=== PATIENT | female | born 1950 | race American Indian/Alaskan Native ===

== ENCOUNTER 2017-10-28 06:20 | Day surgery (SDC) | payer OTHER ==
[2017-10-28] MEDS ORDERED: NACL BACTERIOSTATIC INFILTRATI ONE (06:51)
[2017-10-28] MEDS ORDERED: ANCEF/STERILE WATER 2 GM/20 ML IV NR (07:00)
[2017-10-28] MEDS ORDERED: LACTATED RINGERS 1,000 ML IV SCH (07:00)
[2017-10-28] MEDS ORDERED: XYLOCAINE 1% 20 mL ONE (07:37)
[2017-10-28] MEDS ORDERED: MARCAINE 0.25% INFILTRATI ONE ×2 (07:37→09:00)
[2017-10-28] MEDS ORDERED: VERSED ONE (07:42)
--- NOTE | 2017-10-28 08:07 | Operative Report ---
Operative Report Operative Report: Date of Service: October 28, 2017 Preoperative diagnosis: Right breast mass/mucocele of the upper outer quadrant Postoperative diagnosis: Same Procedure: Right breast mass/mucocele excisional biopsy Surgeon: Halle Sanches M.D. Findings: Known right breast mass/mucocele at the 9 o'clock position 12 cm from the nipple with excision performed Complications: None Drains: None Estimated blood loss: Minimal Disposition: PACU in good condition Indication for operative procedure: This is a 67-year-old lady with abnormal right breast utlrasound. Recent right breast ultrasound guided needle core biopsy of mass at the 9:00 position 12 cm from the nipple with pathology findings of a mucocele and recommendations for excisional biopsy to rule out malignancy. RPatient wished to proceed with the above procedure. The patient was procedure in detail: The patient was taken to the operating room and was laid supine. General anesthesia was administered. The right breast was marked for area of incision using ultrasound to identify lesion at the 9:00 position 12 cm from the nipple. Timeout was performed. A right lateral breast incision was made with a 15 blade knife with dissection taken down to the subcutaneous tissues. Ultrasound was used to identify the area of concern. The mass was encountered and was dissected free with the aid of the Bovie cautery, clip was noted. The specimen was sent to pathology and radiology. Hemostasis was then obtained using the Bovie cautery. The breast cavity was irrigated and suctioned. Kenalog was injected in the skin given history of keloid formation. The deep breast tissues were approximated and closed using interrupted 3-0 Vicryl and skin brought together and closed using a running 4-0 Monocryl followed by skin affix.
[2017-10-28] MEDS ORDERED: DIPRIVAN 10 MG/ML IV ONE (08:10)
[2017-10-28] MEDS ORDERED: SUBLIMAZE ONE (08:10)
--- NOTE | 2017-10-28 08:11 | Short Stay Summary ---
Short Stay Documentation Date of service: 10/28/17 - History H&P: obtained from office - Allergies and Medications Current Medications: Allergies Sulfa (Sulfonamide Antibiotics) Allergy (Verified 10/25/17 10:57) Rash Home Medications Medication Instructions Recorded Confirmed Last Taken Type Ibuprofen 800 mg PO DAILY 10/25/17 10/25/17 Unknown History Telmisartan 80 mg PO DAILY 10/25/17 10/25/17 Unknown History Triamterene/Hydrochlorothiazid 1 tab PO DAILY 10/25/17 10/25/17 Unknown History [Triamterene-Hctz 37.5-25 mg Tb] Active Medications Cefazolin Sodium (Ancef/Sterile Water 2 Gm/20 Ml) 2 gm IV PREOP NR Stop: 10/28/17 23:59 Lactated Ringer's (Lactated Ringers) 1,000 mls @ 75 mls/hr IV DIRECT GROVER - Brief post op/procedure progress note Date of procedure: 10/28/17 Pre-op diagnosis: Right breast mass of upper outer quadrant Post-op diagnosis: same Procedure: Right breast excisional biopsy Anesthesia: GETA Findings: Ultrasound guidance excision of mass at the 9:00 position 12 cm from the nipple , clip present Surgeon: JORDANA PERSON Estimated blood loss: minimal Pathology: list (right breast mass) Specimen disposition: to lab Condition: stable - Disposition Condition at discharge: Good Disposition: DC-01 TO HOME OR SELFCARE Short Stay Discharge Plan Activity: other (no heavy lifting) Diet: regular Wound: other (keep incision clean and dry and may shower in 24 hours; no baths, pools or lakes; do not rub or scrub incision; wear breast binder) Follow up with: YASSINE ROBIN MD [Primary Care Provider] - 7 Days JORDANA PERSON MD [Staff Physician] - 7 Days Prescriptions: HYDROcodone/APAP 5-325 [[place] 5/325] 1 each PO Q6HR PRN #30 tablet PRN Reason: Pain
[2017-10-28] MEDS ORDERED: DILAUDID IV PRN (08:21)
[2017-10-28] MEDS ORDERED: ZOFRAN IV PRN (08:21)
--- NOTE | 2017-10-28 08:22 | Anesthesia Day of Surgery ---
Anesthesia Day of Surgery - Day of Surgery Patient Examined: Yes Patient H&P Reviewed: Yes Patient is NPO: Yes
--- NOTE | 2017-10-28 08:23 | Anesthesia Consultation ---
Anesthesia Consult and Med Hx Date of service: 10/28/17 - Airway Anesthetic Teeth Evaluation: Good ROM Head & Neck: Adequate Mental/Hyoid Distance: Adequate Mallampati Class: Class I Intubation Access Assessment: Good - Pulmonary Exam CTA: Yes - Cardiac Exam Cardiac Exam: RRR - Pre-Operative Health Status ASA Pre-Surgery Classification: ASA2 Proposed Anesthetic Plan: General - Cardiovascular System Hx Hypertension: Yes (20 YEARS)
[2017-10-28] MEDS ORDERED: ZOFRAN ONE (08:24)
[2017-10-28] MEDS ORDERED: REGLAN ONE (08:24)
[2017-10-28] MEDS ORDERED: XYLOCAINE MPF 2% ONE (08:24)
[2017-10-28] MEDS ORDERED: KENALOG-40 ONE (08:38)
[2017-10-28] MEDS ORDERED: XYLOCAINE 1% 20 mL INFILTRATI ONE (09:00)
[2017-10-28] MEDS ORDERED: VERSED IV NR (09:00)
[2017-10-28] MEDS ORDERED: WATER FOR IRRIG STERILE IR ONE (09:00)
[2017-10-28] MEDS ORDERED: LACTATED RINGERS 1,000 ML ONE (09:01)
[2017-10-28] MEDS ORDERED: KENALOG-40 IM ONE (09:10)
--- NOTE | 2017-10-28 15:20 | Mammography Report ---
SPECIMEN RADIOGRAPH RIGHT BREAST: 10/28/17 06:20:00 CLINICAL: Surgical excision of a mucocele. FINDINGS: There is a questionable 8 mm partially circumscribed mass in the center of the specimen. No calcifications and no localizer clip identified within the specimen. IMPRESSION: The specimen radiograph is inconclusive for determining if the lesion has been excised.
--- NOTE | 2017-10-28 16:12 | Post Anesthesia Evaluation ---
- Post Anesthesia Evaluation Patient Participated: Yes Airway Patent: Yes Stable Respiratory Function: Yes Nausea/Vomiting: No Temp > 96.8F: No Pain Manageable: Yes Adequeate Hydration: Yes Anesthesia Complications: No
[2017-10-28 17:09] VITALS: BP 137/82
== END 2017-10-28 11:00 | disposition home or self-care (01) ==
LOC: OR 06:20 → EDBD 08:00 → OR 11:00
PROVIDERS: ATTEND Surgery
DX: N60.11 Diffuse cystic mastopathy of right breast (principal); R92.0 Mammographic microcalcification found on diagnostic imaging of breast; I10 Essential (primary) hypertension; E66.9 Obesity, unspecified; Z68.32 Body mass index [BMI] 32.0-32.9, adult; Z79.899 Other long term (current) drug therapy; Z88.2 Allergy status to sulfonamides; Z90.710 Acquired absence of both cervix and uterus; Z90.49 Acquired absence of other specified parts of digestive tract; Z98.42 Cataract extraction status, left eye; Z98.41 Cataract extraction status, right eye; Z96.651 Presence of right artificial knee joint; Z98.890 Other specified postprocedural states; Z80.3 Family history of malignant neoplasm of breast; Z80.8 Family history of malignant neoplasm of other organs or systems
CPT/HCPCS: 19120; 76098; 88300; 88307; 88341; 88342; J0690; J2250; J2405; J2704; J2765; J3010; J3301; J7120; 88302; 88361

== ENCOUNTER 2018-04-19 09:33 | Outpatient (CLI) | payer OTHER ==
--- NOTE | 2018-04-19 10:03 | Mammography Report ---
Right mammogram: Compared to 10/04/17. CAD study utilized. History: Post biopsy 6 month followup. Findings: Post biopsy changes are noted at the site of biopsy. No microcalcification or additional masses are identified. Normal axilla. Impression: Probably benign. Six-month followup recommended. BI-RADS CATEGORY: 3 = Probably benign ACR BI-RADS MAMMOGRAPHIC CODES: 0 = Needs additional imaging evaluation; 1 = Negative; 2 = Benign; 3 = Probably benign; 4 = Suspicious; 5 = Malignant; 6 = Known biopsy-proven malignancy COMMENT: 1. Dense breast tissue, i.e., adenosis, fibrocystic changes, etc., may obscure an underlying neoplasm. 2. Approximately 10% of cancers are not detected with mammography. 3. A negative mammography report should not delay biopsy if a clinically suspicious mass is present. COMMENT: Patient follow-up letters are generated in [employer].
== END 2018-04-19 09:34 | disposition home or self-care (01) ==
LOC: MERGE 09:33 → SPVWC 09:33
PROVIDERS: ATTEND Surgery
DX: R92.8 Other abnormal and inconclusive findings on diagnostic imaging of breast (principal)

== ENCOUNTER 2018-08-02 14:07 | Outpatient (CLI) | payer OTHER ==
--- NOTE | 2018-08-10 12:51 | Mammography Report ---
BILATERAL DIGITAL SCREENING MAMMOGRAM with CAD: 08/02/18 14:07:00 CLINICAL: Routine screening.Status post right benign surgical excision 10/28/17. COMPARISON:10/04/17 right mammogram and 08/05/17 bilateral mammogram from [facility] FINDINGS: The breasts are heterogeneously dense, which may obscure small masses.Right upper outer benign postsurgical scar. No mass, architectural distortion or suspicious calcifications. IMPRESSION: No mammographic evidence of malignancy. BI-RADS CATEGORY: 2 -- Benign RECOMMENDATION: Routine mammographic screening in one year. COMMENT: Patient follow-up letters are generated by our [employer] application.
== END 2018-08-02 14:08 | disposition home or self-care (01) ==
LOC: SPVWC 14:07
PROVIDERS: ATTEND Surgery
DX: Z12.31 Encounter for screening mammogram for malignant neoplasm of breast (principal)
CPT/HCPCS: 77067